=== PATIENT | female | born 1950 | race Two or more races ===

== ENCOUNTER 2024-02-02 18:43 | Inpatient (IN) | payer MEDICARE ==
[~2024-02-02] VITALS: Ht 160 cm; Wt 49.9 kg
[~2024-02-02 18:43] MED LIST: AMLO10TA80 MT; ASPI-1497 PO; DOCU-138 MT
[2024-02-02] MEDS: SODIUM CHLORIDE 0.9% 600 ML IV ONE ×2 (19:15→23:25)
[2024-02-02] MEDS ORDERED: CEFTRIAXONE 1GM/50ML 50 ML IV ONE (19:15)
[2024-02-02] MEDS: SODIUM CHLORIDE 0.9% 1,000 ML IV ONE (19:15)
[2024-02-02 19:52] LABS: HEMOGLOBIN. 12.6 g/dL (12.0-16.0); MEAN CORPUSCULAR HEMOGLOBIN 33.3 pg (28.0-32.0); MEAN CORPUSCULAR HGB CONC 33.1 g/dL (31.0-37.0); MEAN CORPUSCULAR VOLUME 100.3 fL (81.0-99.0); MEAN PLATELET VOLUME 10.6 fl (7.4-10.4); PLATELET 143 x1000/uL (130-400); RED BLOOD CELL COUNT 3.79 mill/uL (4.2-5.4); RED CELL DISTRIBUTION WIDTH 14.4 % (11.6-14.6); WHITE BLOOD COUNT 10.9 x1000/uL (4.5-11.0)
[2024-02-02 19:53] LABS: DIFFERENTIAL COMMENT 1
[2024-02-02 19:59] LABS: INR 1.1; PROTHROMBIN TIME 11.8 sec (9.6-11.0)
[2024-02-02 20:03] LABS: ALANINE AMINOTRANSFERASE 10 IU/L (10-49); ALBUMIN 3.2 g/dL (3.2-4.8); ASPARTATE AMINOTRANSFERASE 14 IU/L (<34); BILIRUBIN TOTAL 0.8 mg/dL (0.1-1.0); CALCIUM 8.7 mg/dL (8.7-10.4); CARBON DIOXIDE 28 mEq/L (21-32); CHLORIDE 118 mEq/L (98-107); GLUCOSE 192 mg/dL (70-105); POTASSIUM 3.6 mEq/L (3.5-5.1); PROTEIN TOTAL 6.5 g/dL (6.0-8.3); UREA NITROGEN BLOOD 70 mg/dL (9-23)
[2024-02-02 20:06] LABS: CREATININE 1.8 mg/dL (0.6-1.0)
[2024-02-02 20:10] LABS: LACTIC ACID 4.4 mmol/L (0.4-2.0); SODIUM 156 mEq/L (136-145)
[2024-02-02 20:20] LABS: PLATELET ESTIMATE NORMAL
[2024-02-02 20:21] LABS: ANISOCYTOSIS 1+
[2024-02-02 20:22] LABS: OVALOCYTES 1+
[2024-02-02] MEDS ORDERED: LACTATED RINGERS 1,000 ML IV SCH (20:45)
[2024-02-02] MEDS: NOREPINEPHRINE 8MG/250ML PMX 250 ML IV ONE (21:17)
[2024-02-02] MEDS: PIPERACILLIN/TAZO 3.375G/50ML 50 ML IV SCH (21:18)
[2024-02-02] MEDS: LACTATED RINGERS 1,000 ML IV SCH (21:22)
[2024-02-02] MEDS: VANCOMYCIN 1G PREMIX 200 ML IV SCH (21:50)
[2024-02-03 02:45] VITALS: BP 120/81; PULSE 79; RESP 20; TEMP 97.3
[2024-02-03 03:00] VITALS: BP 120/81; PULSE 92; RESP 20; TEMP 97.3
[2024-02-03] MEDS: DEXTROSE 5% WATER 1,000 ML IV SCH (07:07)
[2024-02-03 08:00] VITALS: BP 132/79; PULSE 82; RESP 17; TEMP 97.4
[2024-02-03 08:48] LABS: HEMATOCRIT 37.1 % (36.0-48.0); HEMOGLOBIN 11.9 g/dL (12.0-16.0); MEAN CORPUSCULAR HEMOGLOBIN 32.8 pg (28.0-32.0); MEAN CORPUSCULAR HGB CONC 32.1 g/dL (31.0-37.0); MEAN CORPUSCULAR VOLUME 102.3 fL (81.0-99.0); PLATELET 85 x1000/uL (130-400); RED BLOOD CELL COUNT 3.63 mill/uL (4.2-5.4); RED CELL DISTRIBUTION WIDTH 14.8 % (11.6-14.6); WHITE BLOOD COUNT 13.4 x1000/uL (4.5-11.0)
[2024-02-03] MEDS ORDERED: PIPERACILLIN/TAZO 3.375G/50ML 50 ML IV SCH (09:00)
[2024-02-03 09:02] LABS: ALANINE AMINOTRANSFERASE 10 IU/L (10-49); ALBUMIN 3.2 g/dL (3.2-4.8); ASPARTATE AMINOTRANSFERASE 17 IU/L (<34); BILIRUBIN DIRECT 0.3 mg/dL (<=3.0); BILIRUBIN TOTAL 0.6 mg/dL (0.1-1.0); CALCIUM 8.6 mg/dL (8.7-10.4); CARBON DIOXIDE 29 mEq/L (21-32); CHLORIDE 119 mEq/L (98-107); CREATININE 1.7 mg/dL (0.6-1.0); GLUCOSE 177 mg/dL (70-105); POTASSIUM 3.8 mEq/L (3.5-5.1); PROTEIN TOTAL 6.3 g/dL (6.0-8.3); UREA NITROGEN BLOOD 59 mg/dL (9-23)
[2024-02-03 09:05] LABS: SODIUM 156 mEq/L (136-145)
[2024-02-03] MEDS: PANTOPRAZOLE SODIUM 40 MG/VIAL IV SCH (09:18)
[2024-02-03 09:48] LABS: CLARITY URINE CLEAR (CLEAR); COLOR URINE YELLOW (YELLOW); GLUCOSE URINE NEGATIVE (NEGATIVE); KETONES URINE NEGATIVE (NEGATIVE); LEUKOCYTE ESTERASE URINE TRACE (NEGATIVE); NITRITE URINE NEGATIVE (NEGATIVE); OCCULT BLOOD URINE NEGATIVE (NEGATIVE); PROTEIN URINE 1+ (NEGATIVE); SPECIFIC GRAVITY URINE 1.019 (1.005-1.030); UROBILINOGEN URINE 0.2 E.U./dL (0.2-1.0)
[2024-02-03 09:59] LABS: SQUAMOUS EPITHELIAL CELL URINE 1+ /lpf (RARE/1+)
[2024-02-03 10:00] LABS: BACTERIA URINE 1+; RBC URINE NONE SEEN /hpf (0-2); WBC URINE 0-2 /hpf (0-2)
[2024-02-03 12:00] VITALS: BP 146/78; PULSE 80; RESP 17; TEMP 97.2
[2024-02-03] MEDS: CEFEPIME 1GM/50ML 50 ML IV SCH (12:12)
[2024-02-03 16:00] VITALS: BP 143/88; PULSE 86; RESP 18; TEMP 97.3
[2024-02-03 20:00] VITALS: BP 146/90; PULSE 76; RESP 17; TEMP 97.6
[2024-02-03] MEDS: VANCOMYCIN 500MG/100ML IV NR (20:09)
[2024-02-04] VITALS: BP 140/85; PULSE 80; RESP 16; TEMP 97.6
[2024-02-04 04:00] VITALS: BP 120/77; PULSE 77; RESP 18; TEMP 96.8
[2024-02-04 08:00] VITALS: BP 127/78; PULSE 71; RESP 17; TEMP 96.8
[2024-02-04 08:33] LABS: CREATININE 1.3 mg/dL (0.6-1.0); POTASSIUM 2.9 mEq/L (3.5-5.1)
[2024-02-04 09:26] LABS: MEAN CORPUSCULAR HEMOGLOBIN 33.2 pg (28.0-32.0); MEAN PLATELET VOLUME 10.6 fl (7.4-10.4); PLATELET 69 x1000/uL (130-400); RED BLOOD CELL COUNT 2.84 mill/uL (4.2-5.4); RED CELL DISTRIBUTION WIDTH 14.1 % (11.6-14.6); WHITE BLOOD COUNT 9.2 x1000/uL (4.5-11.0)
[2024-02-04 09:53] LABS: DIFFERENTIAL COMMENT 1
[2024-02-04 09:54] LABS: HEMOGLOBIN. 9.4 g/dL (12.0-16.0)
[2024-02-04 09:55] LABS: HEMATOCRIT. 27.7 % (36.0-48.0); MEAN CORPUSCULAR VOLUME 97.7 fL (81.0-99.0)
[2024-02-04 12:00] VITALS: BP 129/78; PULSE 74; RESP 17; TEMP 97.2
[2024-02-04 14:18] LABS: PLATELET ESTIMATE DECREASED
[2024-02-04] MEDS: KCL 20MEQ/100ML PREMIX 100 ML IV NR (15:46)
[2024-02-04 16:00] VITALS: BP_SYST 114; BP_SYST 144; BP_DIAS 58; BP_DIAS 94; PULSE 83; PULSE 97; RESP 17; RESP 18; TEMP 97.7; TEMP 98.8
[2024-02-04] MEDS: POTASSIUM CHLORIDE 20MEQ/PACKET PO NR (18:29)
[2024-02-04 20:00] VITALS: BP 140/86; PULSE 83; RESP 18; TEMP 97.4
[2024-02-04] MEDS: VANCOMYCIN 750MG/150ML IV SCH (22:07)
[2024-02-05] VITALS: BP 154/82; PULSE 81; RESP 18; TEMP 97.3
[2024-02-05 04:00] VITALS: BP 146/81; PULSE 84; RESP 17; TEMP 97.4
[2024-02-05 07:13] LABS: CALCIUM 7.9 mg/dL (8.7-10.4); POTASSIUM 3.7 mEq/L (3.5-5.1)
[2024-02-05 08:00] VITALS: BP 133/82; PULSE 81; RESP 18; TEMP 98.5
[2024-02-05 08:47] LABS: HEMATOCRIT. 28.9 % (36.0-48.0); HEMOGLOBIN. 8.7 g/dL (12.0-16.0); MEAN CORPUSCULAR HEMOGLOBIN 32.6 pg (28.0-32.0); MEAN CORPUSCULAR HGB CONC 30.2 g/dL (31.0-37.0); MEAN PLATELET VOLUME 11.4 fl (7.4-10.4); PLATELET 64 x1000/uL (130-400); RED BLOOD CELL COUNT 2.68 mill/uL (4.2-5.4); RED CELL DISTRIBUTION WIDTH 14.9 % (11.6-14.6)
[2024-02-05 08:53] LABS: DIFFERENTIAL COMMENT 1
[2024-02-05 12:00] VITALS: BP 145/86; PULSE 68; RESP 18; TEMP 97.5
[2024-02-05 13:37] LABS: NUCLEATED RED BLOOD CELLS 2 /100 WBC
[2024-02-05 13:38] LABS: ANISOCYTOSIS 1+; PLATELET ESTIMATE DECREASED
[2024-02-05 16:00] VITALS: BP 148/96; PULSE 68; RESP 18; TEMP 97.9
[2024-02-05 20:00] VITALS: BP 147/96; PULSE 89; RESP 20; TEMP 97.2
[2024-02-05] MEDS: CEFEPIME 2,000 MG in DEXT 5% WATER 100 ML IV SCH (21:29)
[2024-02-06] VITALS: BP 155/99; PULSE 68; RESP 20; TEMP 98.4
[2024-02-06] MEDS ORDERED: CEFEPIME 1GM/50ML 50 ML IV SCH
[2024-02-06 04:00] VITALS: BP 153/86; PULSE 81; RESP 4; TEMP 97.7
[2024-02-06 06:43] LABS: CALCIUM 7.9 mg/dL (8.7-10.4); CARBON DIOXIDE 27 mEq/L (21-32); CHLORIDE 107 mEq/L (98-107); CREATININE 0.9 mg/dL (0.6-1.0); GLUCOSE 153 mg/dL (70-105); SODIUM 141 mEq/L (136-145); UREA NITROGEN BLOOD 28 mg/dL (9-23)
[2024-02-06 08:00] VITALS: BP 145/96; PULSE 64; RESP 20; TEMP 97.6
[2024-02-06 08:27] LABS: POTASSIUM 2.5 mEq/L (3.5-5.1)
[2024-02-06 09:45] LABS: HEMATOCRIT. 35.7 % (36.0-48.0); MEAN CORPUSCULAR HEMOGLOBIN 32.6 pg (28.0-32.0); MEAN CORPUSCULAR HGB CONC 33.5 g/dL (31.0-37.0); MEAN CORPUSCULAR VOLUME 97.3 fL (81.0-99.0); MEAN PLATELET VOLUME 10.8 fl (7.4-10.4); PLATELET 82 x1000/uL (130-400); RED BLOOD CELL COUNT 3.67 mill/uL (4.2-5.4); RED CELL DISTRIBUTION WIDTH 13.8 % (11.6-14.6); WHITE BLOOD COUNT 9.7 x1000/uL (4.5-11.0)
[2024-02-06 09:51] LABS: DIFFERENTIAL COMMENT 1
[2024-02-06] MEDS: MULTIVITAMINS,THER W-MINERALS TABLET PO SCH (10:31)
[2024-02-06] MEDS: ASCORBIC ACID 500 MG TABLET PO SCH (10:31)
[2024-02-06] MEDS: ZINC SULFATE 220 MG ( 50 ) CAPSULE PO SCH (10:32)
[2024-02-06] MEDS: CEFEPIME 2,000 MG in DEXT 5% WATER 100 ML IV SCH (10:36)
[2024-02-06 12:00] VITALS: BP 131/91; PULSE 98; RESP 17; TEMP 97.2
[2024-02-06] MEDS: POTASSIUM CHLORIDE 20MEQ/PACKET PO NR ×2 (12:25→13:48)
[2024-02-06 12:50] LABS: PLATELET ESTIMATE DECREASED
[2024-02-06] MEDS: KCL 20MEQ/100ML PREMIX 100 ML IV NR (13:48)
[2024-02-06 16:00] VITALS: BP 144/78; PULSE 59; RESP 18; TEMP 97.5
[2024-02-06 20:00] VITALS: BP 133/80; PULSE 72; RESP 18; TEMP 97.4
[2024-02-07] VITALS: BP 140/83; PULSE 63; RESP 18; TEMP 97.4
[2024-02-07 04:00] VITALS: BP 150/93; PULSE 80; RESP 19; TEMP 98.1
[2024-02-07 08:00] VITALS: BP 147/104; PULSE 73; RESP 18; TEMP 96
[2024-02-07 12:00] VITALS: BP 134/89; PULSE 68; RESP 18; TEMP 97.5
[2024-02-07 15:48] LABS: HEMATOCRIT. 29.3 % (36.0-48.0); HEMOGLOBIN. 10.1 g/dL (12.0-16.0); MEAN CORPUSCULAR HEMOGLOBIN 32.9 pg (28.0-32.0); MEAN CORPUSCULAR HGB CONC 34.3 g/dL (31.0-37.0); MEAN CORPUSCULAR VOLUME 95.8 fL (81.0-99.0); MEAN PLATELET VOLUME 10.5 fl (7.4-10.4); PLATELET 89 x1000/uL (130-400); RED BLOOD CELL COUNT 3.06 mill/uL (4.2-5.4); RED CELL DISTRIBUTION WIDTH 13.4 % (11.6-14.6); WHITE BLOOD COUNT 8.6 x1000/uL (4.5-11.0)
[2024-02-07 15:49] LABS: DIFFERENTIAL COMMENT 1
[2024-02-07 16:00] VITALS: BP 141/91; PULSE 63; RESP 18; TEMP 97.5
[2024-02-07 16:12] LABS: CALCIUM 7.2 mg/dL (8.7-10.4); CARBON DIOXIDE 20 mEq/L (21-32); CHLORIDE 101 mEq/L (98-107); CREATININE 0.9 mg/dL (0.6-1.0); GLUCOSE 249 mg/dL (70-105); POTASSIUM 3.7 mEq/L (3.5-5.1); SODIUM 131 mEq/L (136-145); UREA NITROGEN BLOOD 35 mg/dL (9-23)
[2024-02-07 16:25] LABS: GIANT PLATELETS 1+; PLATELET ESTIMATE SLIGHTLY DECREASED
[2024-02-07 20:00] VITALS: BP 132/86; PULSE 78; RESP 19; TEMP 97.5
[2024-02-07] MEDS: CEFEPIME 2GM/100ML 100 ML IV SCH (21:39)
[2024-02-08] VITALS: BP 127/84; PULSE 80; RESP 17; TEMP 97.3
[2024-02-08 04:00] VITALS: BP 132/85; PULSE 82; RESP 19; TEMP 97.2
[2024-02-08 06:45] LABS: EOSINOPHILS % 2.1 % (0.0-5.0); HEMATOCRIT. 27.4 % (36.0-48.0); HEMOGLOBIN. 9.5 g/dL (12.0-16.0); LYMPHOCYTES % 9.2 % (20.0-50.0); MEAN CORPUSCULAR HEMOGLOBIN 32.6 pg (28.0-32.0); MEAN CORPUSCULAR HGB CONC 34.7 g/dL (31.0-37.0); MEAN PLATELET VOLUME 10.8 fl (7.4-10.4); MONOCYTES % 5.5 % (2.0-8.0); NEUTROPHILS % 83.2 % (40.0-76.0); PLATELET 94 x1000/uL (130-400); RED BLOOD CELL COUNT 2.92 mill/uL (4.2-5.4); RED CELL DISTRIBUTION WIDTH 13.8 % (11.6-14.6); WHITE BLOOD COUNT 6.6 x1000/uL (4.5-11.0)
[2024-02-08 07:39] LABS: CALCIUM 7.2 mg/dL (8.7-10.4); CARBON DIOXIDE 22 mEq/L (21-32); CHLORIDE 104 mEq/L (98-107); CREATININE 0.8 mg/dL (0.6-1.0); GLUCOSE 148 mg/dL (70-105); POTASSIUM 3.2 mEq/L (3.5-5.1); SODIUM 135 mEq/L (136-145); UREA NITROGEN BLOOD 32 mg/dL (9-23)
[2024-02-08 08:00] VITALS: BP 168/95; PULSE 52; RESP 20; TEMP 97.8
[2024-02-08] MEDS ORDERED: LIDOCAINE HCL/EPINEPHRINE 1%-EPI 1:100,000 20 ML VIAL INFIL SCH (11:00)
[2024-02-08 12:00] VITALS: BP 142/97; PULSE 92; RESP 20; TEMP 97.5
[2024-02-08 16:00] VITALS: BP 138/84; PULSE 85; RESP 20; TEMP 97.1
[2024-02-08] MEDS: HYDROCODONE/ACETAMINOPHEN 5/325MG TABLET PO PRN (17:59)
[2024-02-08 20:00] VITALS: BP 152/95; PULSE 88; RESP 18; TEMP 97
[2024-02-09] VITALS (7 sets, daily range): BP systolic 117–142; BP diastolic 81–92; PULSE 76–109; RESP 16–19; TEMP 97.2–98
[2024-02-09 10:41] LABS: BG CARBOXYHEMOGLOBIN 0.2 % (0.5-1.5); BG DEOXYHEMOGLOBIN 3.5 % (0.0-5.0); BG FRACTION INSPIRED OXYGEN 21; BG HCO3 ACT 22.2 mmol/L (22.0-26.0); BG METHEMOGLOBIN 0.1 % (0.0-1.5); BG OXYGEN SATURATION 96.5 % (92.0-98.5); BG OXYHEMOGLOBIN 96.2 % (94.0-97.0); BG PCO2 31.5 mmHg (35.0-45.0); BG PH 7.466 (7.350-7.450); BG PO2 90.6 mmHg (75.0-100.0); BG SAMPLE SITE LEFT RADIAL; BG TOTAL HEMOGLOBIN 9.8 g/dL (12.0-18.0)
[2024-02-09] MEDS ORDERED: NALOXONE HCL 0.4MG/ML VIAL IV PRN (16:30)
[2024-02-09] MEDS: VANCOMYCIN 750MG/150ML IV SCH (20:44)
[2024-02-10] VITALS (7 sets, daily range): BP systolic 128–140; BP diastolic 74–88; PULSE 80–98; RESP 18–19; TEMP 97.7–98.7
[2024-02-10] MEDS: CEFAZOLIN 2GM/100ML 100 ML IV SCH (21:21)
[2024-02-11] VITALS (7 sets, daily range): BP systolic 125–186; BP diastolic 83–92; PULSE 63–99; RESP 14–19; TEMP 97–98.7
[2024-02-11] MEDS: KCL 20MEQ/100ML PREMIX 100 ML IV SCH (19:15)
[2024-02-11 19:55] LABS: CALCIUM 7.5 mg/dL (8.7-10.4); CREATININE 1.2 mg/dL (0.6-1.0); POTASSIUM 3.2 mEq/L (3.5-5.1)
[2024-02-12] VITALS: BP 115/76; PULSE 76; RESP 16; TEMP 97.9
[2024-02-12 04:00] VITALS: BP 156/90; PULSE 87; RESP 18; TEMP 97.9
[2024-02-12 08:00] VITALS: BP 142/89; PULSE 79; RESP 20; TEMP 97.4
[2024-02-12 12:00] VITALS: BP 131/81; PULSE 87; RESP 20; TEMP 97
[2024-02-12 16:00] VITALS: BP 153/91; PULSE 93; RESP 20; TEMP 97.2
[2024-02-12 20:00] VITALS: BP 153/90; PULSE 92; RESP 18; TEMP 98.5
[2024-02-13] VITALS: BP 128/86; PULSE 84; RESP 17; TEMP 98.5
[2024-02-13 04:00] VITALS: BP 135/93; PULSE 86; RESP 18; TEMP 97.5
[2024-02-13 08:00] VITALS: BP 126/76; PULSE 75; RESP 20; TEMP 97
[2024-02-13 12:00] VITALS: BP 133/82; PULSE 84; RESP 20; TEMP 96.9
[2024-02-13 12:56] LABS: HEMATOCRIT. 26.5 % (36.0-48.0); HEMOGLOBIN. 9.2 g/dL (12.0-16.0); MEAN CORPUSCULAR HEMOGLOBIN 33.3 pg (28.0-32.0); MEAN CORPUSCULAR HGB CONC 34.7 g/dL (31.0-37.0); MEAN CORPUSCULAR VOLUME 95.9 fL (81.0-99.0); MEAN PLATELET VOLUME 8.6 fl (7.4-10.4); PLATELET 195 x1000/uL (130-400); RED BLOOD CELL COUNT 2.76 mill/uL (4.2-5.4); WHITE BLOOD COUNT 9.3 x1000/uL (4.5-11.0)
[2024-02-13 13:09] LABS: DIFFERENTIAL COMMENT 1
[2024-02-13 13:24] LABS: CALCIUM 7.3 mg/dL (8.7-10.4); CARBON DIOXIDE 24 mEq/L (21-32); CHLORIDE 112 mEq/L (98-107); CREATININE 0.9 mg/dL (0.6-1.0); GLUCOSE 164 mg/dL (70-105); POTASSIUM 3.2 mEq/L (3.5-5.1); SODIUM 142 mEq/L (136-145); UREA NITROGEN BLOOD 51 mg/dL (9-23)
[2024-02-13] MEDS ORDERED: LIDOCAINE HCL 1% 10 MG/ML 10ML VIAL ONE (14:38)
[2024-02-13 16:00] VITALS: BP 155/88; PULSE 86; RESP 18; TEMP 97.9
[2024-02-13 20:00] VITALS: BP 127/86; PULSE 82; RESP 18; TEMP 98.1
[2024-02-13 22:49] LABS: PLATELET ESTIMATE NORMAL
[2024-02-14] VITALS: BP 140/80; PULSE 67; RESP 18; TEMP 98.8
[2024-02-14 04:00] VITALS: BP 140/88; PULSE 74; RESP 18; TEMP 96.8
[2024-02-14 07:24] LABS: BASOPHILS % 0.9 % (0.0-2.0); EOSINOPHILS % 1.3 % (0.0-5.0); LYMPHOCYTES % 7.4 % (20.0-50.0); MEAN CORPUSCULAR HEMOGLOBIN 32.8 pg (28.0-32.0); MEAN CORPUSCULAR HGB CONC 34.6 g/dL (31.0-37.0); MEAN CORPUSCULAR VOLUME 94.7 fL (81.0-99.0); MEAN PLATELET VOLUME 8.7 fl (7.4-10.4); MONOCYTES % 3.6 % (2.0-8.0); NEUTROPHILS % 86.8 % (40.0-76.0); PLATELET 201 x1000/uL (130-400); RED BLOOD CELL COUNT 2.74 mill/uL (4.2-5.4); WHITE BLOOD COUNT 9.2 x1000/uL (4.5-11.0)
[2024-02-14 07:30] VITALS: BP 148/89; PULSE 88; RESP 18; TEMP 97.3
[2024-02-14 07:38] LABS: CALCIUM 7.5 mg/dL (8.7-10.4); POTASSIUM 3.4 mEq/L (3.5-5.1)
[2024-02-14] MEDS: POTASSIUM CHLORIDE 20MEQ/PACKET PO NR (11:01)
[2024-02-14 12:00] VITALS: BP 136/85; PULSE 92; RESP 18; TEMP 97.7
[2024-02-14 16:00] VITALS: BP 115/75; PULSE 93; RESP 18; TEMP 97.6
[2024-02-14 17:59] VITALS: BP 115/75; PULSE 93; TEMP 97.6; O2SAT 97
== END 2024-02-14 18:27 | disposition home or self-care (01) | DRG 853 ==
LOC: ER 18:56 → 7EST 21:12 → EDBEDREQ 21:20 → EDBEDREQTM 21:20
PROVIDERS: ADMIT Internal Medicine; ATTEND Internal Medicine
PROC: 0QB10ZZ Excision of Sacrum, Open Approach (ICD-10-PCS; 2024-02-08)
PROC: 0QBM0ZZ Excision of Left Tarsal, Open Approach (ICD-10-PCS; 2024-02-08)
PROC: 0QBL0ZZ Excision of Right Tarsal, Open Approach (ICD-10-PCS; 2024-02-08)
PROC: 02HV33Z Insertion of Infusion Device into Superior Vena Cava, Percutaneous Approach (ICD-10-PCS; principal; 2024-02-13)
PROC: B548ZZA Ultrasonography of Superior Vena Cava, Guidance (ICD-10-PCS; 2024-02-13)
DX: A41.89 Other specified sepsis (principal); G93.41 Metabolic encephalopathy; L89.624 Pressure ulcer of left heel, stage 4; L89.614 Pressure ulcer of right heel, stage 4; L89.154 Pressure ulcer of sacral region, stage 4; J18.9 Pneumonia, unspecified organism; E87.0 Hyperosmolality and hypernatremia; N17.9 Acute kidney failure, unspecified; E11.9 Type 2 diabetes mellitus without complications; F03.90 Unspecified dementia, unspecified severity, without behavioral disturbance, psychotic disturbance, mood disturbance, and anxiety; I11.0 Hypertensive heart disease with heart failure; I48.91 Unspecified atrial fibrillation; I50.9 Heart failure, unspecified; Z86.73 Personal history of transient ischemic attack (TIA), and cerebral infarction without residual deficits
CPT/HCPCS: 36415; 36573; 36600; 71045; 71250; 80048; 80053; 80076; 80202; 81003; 82375; 82805; 82962; 83605; 84145; 85025; 85027; 87077; 87186; 92610; 93005; 93306; 97110; 97162; 97167; 97530; 97535; 99291; C1725; C1893; C9113; J0690; J0692; J2543; J3370; J3480; J3490; J7030; J7040; J7060; J7070